=== PATIENT | female | born 1995 | race Hispanic/Latino ===

== ENCOUNTER 2018-04-07 20:30 | Day surgery (SDC) | payer OTHER ==
[2018-04-07 21:16] VITALS: BP 134/73; TEMP 98; BMI 26.3
[2018-04-07 21:18] LABS: Amnisure Internal Control QC ACCEPTABLE (ACCEPTABLE); Amnisure Test No Membranes Rupture (No Rupture)
== END 2018-04-07 23:00 | disposition home or self-care (01) ==
LOC: L&D/OP 20:30
PROVIDERS: ATTEND Obstetrics & Gynecology
DX: O47.9 False labor, unspecified (principal); Z79.899 Other long term (current) drug therapy
CPT/HCPCS: 84112; 87480; 87510; 87660; 99284

== ENCOUNTER 2018-04-08 06:08 | Inpatient (IN) | payer MEDICAID, OTHER, SELFPAY ==
[2018-04-08 06:33] VITALS: BMI 26.3
[2018-04-08] MEDS: Lactated Ringer's 1,000 ML IV SCH ×2 (06:58→08:16)
[2018-04-08] MEDS ORDERED: NS / Oxytocin 40 units/1000ml 1,000 ML IV PRN (07:11)
[2018-04-08] MEDS ORDERED: Ondansetron HCl/PF 4 MG/2 ML Vial IVP PRN (07:11)
[2018-04-08] MEDS ORDERED: Lidocaine 1% (PF) 30 ML VIAL SC PRN (07:11)
[2018-04-08] MEDS ORDERED: Zolpidem Tartrate 5 MG TAB PO PRN (07:11)
[2018-04-08] MEDS ORDERED: Butorphanol Tartrate 1 MG/ML VIAL SLOW IVP PRN (07:11)
[2018-04-08] MEDS ORDERED: Promethazine HCl 25 MG/ML VIAL IM PRN (07:11)
[2018-04-08] MEDS ORDERED: Docusate 100 MG CAP PO PRN (07:11)
[2018-04-08] MEDS ORDERED: HYDROcodone/Acetaminophen 5/325 mg Tablet PO PRN ×4 (07:29→13:17)
[2018-04-08] MEDS ORDERED: Ibuprofen 800 MG TAB PO PRN (07:29)
[2018-04-08] MEDS ORDERED: Bupivacaine 0.5% 20 ML, fentaNYL Citrate/PF 400 MCG in Sodium Chloride 0.9% 72 ML EPIDURAL SCH (07:30)
[2018-04-08] MEDS ORDERED: DISCONTINUE ALL PREVIOUS NARCOTICS FS SCH (07:30)
[2018-04-08] MEDS ORDERED: Bupivacaine 0.75% W/DEXTROSE 8.25% 2 ML AMP ONE (07:36)
[2018-04-08 07:38] LABS: Hemoglobin 12.6 g/dL (12.0-16.0); Mean Corpuscular Hemoglobin 30.9 pg (27.0-31.0); Mean Corpuscular Volume 85.7 fL (78.0-98.0); Platelet Count 146 thou/uL (130-400); RBC Distribution Width 12.1 % (11.5-14.5); Red Blood Cell (RBC) Count 4.07 mill/uL (4.20-5.40); White Blood Cell (WBC) Count 15.9 thou/uL (4.8-10.8)
[2018-04-08] MEDS ORDERED: Bupivacaine 0.5% 10 ML VIAL ONE (08:08)
[2018-04-08] MEDS ORDERED: Fentanyl 100 MCG/2 ML VIAL ONE (08:08)
[2018-04-08 08:23] LABS: HBSAg Index 0.21 S/CO (0-0.99); Hep B Surf Ag Non-Reactive S/CO (NonReactive); Syphilis Antibody Nonreactive (Nonreactive); Syphilis Antibody Index 0.03 S/CO (<1.00 Non-Reactive)
[2018-04-08] MEDS ORDERED: Bisacodyl 10 MG SUPP PR PRN (13:17)
[2018-04-08] MEDS ORDERED: Lanolin Ointment 7 GM TUBE TOP PRN (13:17)
[2018-04-08] MEDS ORDERED: Milk Of Magnesia 30 ML UDCUP PO PRN (13:17)
[2018-04-08] MEDS ORDERED: NS / Oxytocin 40 units/1000ml 1,000 ML IV SCH (13:17)
[2018-04-08] MEDS ORDERED: Benzocaine/Menthol 20-0.5% 60 ML CAN TOP PRN (13:17)
[2018-04-08] MEDS ORDERED: Adacel (T-DAP) 0.5 ML VIAL IM ONE (13:17)
--- NOTE | 2018-04-08 13:24 | OP ---
DATE OF PROCEDURE: 04/08/2018 ADMITTING DIAGNOSES: 1. A 22-year-old female, G3, P1-0-1-1, presented in active labor at 38 weeks and 5 days aft er a previous triage visit for the same complaint and sent home hours prior. 2. History of chlamydia in the first trimester, which was treated and resolved with test of cure is negative. 3. Grade 1-2 placenta. 4. Anemia of . 5. GBS negative. POST-DELIVERY DIAGNOSES: 1. A 22-year-old female, G3, P1-0-1-1, presented in active labor at 38 weeks and 5 days aft er a previous triage visit for the same complaint and sent home hours prior. 2. History of chlamydia in the first trimester, which was treated and resolved with test of cure is negative. 3. Grade 1-2 placenta. 4. Anemia of . 5. GBS negative. 6. Liveborn female with Apgars of 9 and 9 at 1 and 5 minutes, respectively. 7. Manually extracted placenta. SURGEON: Mary Grace Tamayo M.D. ANESTHESIA: Epidural. ESTIMATED BLOOD LOSS: 100 mL, quantitative blood loss measured was 80 mL. CLINICAL HISTORY: This patient is a 22-year-old female, G3, P1-0-1-1, who presented in acti ve labor around 6:00 a.m. this morning with a complaint of regular painful contractions. 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 Apparently, contractions were not able to be registered on the tocometer . The patient then was 3 cm, 60% effaced, and -3 station. When she returned for the admission, her cervical exam was 6 cm, 80% effaced, and 0 station. The patient was significantly uncomfortable and initially wanted a natural delivery. However, after amniotomy was performed with clear fluid, the pa tient progressed rapidly and her pain intensified. She requested an epidural for maternal analgesia. The epidural was placed and she continued to progress appropriately. A Edward catheter was placed a nd there was noted to be slightly blood-tinged urine. The patient progressed to complete, +2 station and began to push. DETAILS OF THE PROCEDURE: With good maternal effort, the patient was able to push the vertex t o the position. The baby was direct OP, and once the head was delivered, it restituted to t he patient's left. The anterior shoulder, followed by the posterior shoulder, followed by the remain morteza of the 's body was delivered. The cord was doubly clamped and cut by the mother of the pat ient and the was then placed on the maternal abdomen for skin to skin. The cord blood was obt ained and then the placenta was attempted delivery with fundal massage. However, after exploration, the placenta was tethered to the fundus and was manually finger dissected off of the uterine wall wit h a release. The placenta was inspected after delivery outside the body and noted that all of the lo bes of the placenta were present. There was a significant amount of calcifications for each lobe con sistent with the grade 2 placenta. The uterus was then well below the umbilicus and an exploration o f vagina introitus and cervix noted, no lacerations. The patient was allowed to recover on her Labor and Delivery unit in satisfactory condition with her . Again, the was a liveborn femal e, weight unavailable at the time of dictation with Apgars of 9 and 9 at 1 and 5 minutes respectively . There were no other issues surrounding this delivery.
[2018-04-08] MEDS: Ibuprofen 800 MG TAB PO SCH ×2 (14:45→21:36)
[2018-04-08] MEDS: Ferrous Sulfate 325 MG TAB PO SCH (17:33)
[2018-04-08] MEDS: Docusate Calcium (SURFAK) 240 MG CAP PO SCH (21:35)
[2018-04-09] MEDS: Ibuprofen 800 MG TAB PO SCH ×2 (06:15→14:43)
[2018-04-09] MEDS: Lactated Ringer's 1,000 ML IV SCH ×2 (06:27→14:43)
[2018-04-09 08:35] VITALS: TEMP 98.2
[2018-04-09] MEDS: Docusate Calcium (SURFAK) 240 MG CAP PO SCH (08:54)
[2018-04-09] MEDS: Ferrous Sulfate 325 MG TAB PO SCH (08:54)
[2018-04-09] MEDS ORDERED: Prenatal Vitamin 1 TAB PO SCH (09:00)
[2018-04-09 14:15] VITALS: BP 115/62
== END 2018-04-09 14:33 | disposition home or self-care (01) | DRG 775 ==
LOC: L&D/OP 06:08 → L&D 07:13 → 3SE 13:31
PROVIDERS: ADMIT Obstetrics & Gynecology; ATTEND Obstetrics & Gynecology
PROC: 10907ZC Drainage of Amniotic Fluid, Therapeutic from Products of Conception, Via Natural or Artificial Opening (ICD-10-PCS; principal; 2018-04-08)
PROC: 10E0XZZ Delivery of Products of Conception, External Approach (ICD-10-PCS; 2018-04-08)
PROC: 3E033VJ Introduction of Other Hormone into Peripheral Vein, Percutaneous Approach (ICD-10-PCS; 2018-04-08)
DX: O99.02 Anemia complicating childbirth (principal); D64.9 Anemia, unspecified; Z3A.38 38 weeks gestation of pregnancy; Z37.0 Single live birth
CPT/HCPCS: 51702; 85027; 86780; 86850; 86900; 86901; 87340; 90715; 99285; A4216; J2001; J3010; J3490; J7050

== ENCOUNTER 2019-08-17 03:12 | Inpatient (IN) | payer OTHER, SELFPAY ==
[2019-08-17 03:47] VITALS: BMI 26.6
[2019-08-17] MEDS ORDERED: HYDROcodone/Acetaminophen 5/325 mg Tablet PO PRN ×3 (04:12→08:12)
[2019-08-17] MEDS ORDERED: Misoprostol 200 MCG TAB PR PRN (04:12)
[2019-08-17] MEDS ORDERED: Ondansetron PF 4 MG/2 ML Vial IVP PRN ×3 (04:12→08:12)
[2019-08-17] MEDS ORDERED: Promethazine HCl 25 MG/ML VIAL IM PRN ×3 (04:12→08:12)
[2019-08-17] MEDS ORDERED: Lidocaine 1% (PF) 30 ML VIAL SC PRN (04:12)
[2019-08-17] MEDS ORDERED: Ibuprofen 800 MG TAB PO PRN (04:12)
[2019-08-17] MEDS ORDERED: Butorphanol Tartrate 1 MG/ML VIAL SLOW IVP PRN (04:12)
[2019-08-17] MEDS ORDERED: Methylergonovine 0.2 MG/ML VIAL IM PRN ×2 (04:12→08:12)
[2019-08-17] MEDS ORDERED: hydrALAZINE 20 MG/ML VIAL SLOW IVP PRN ×2 (04:12→08:12)
[2019-08-17] MEDS ORDERED: NS / Oxytocin 40 units/1000ml 1,000 ML IV PRN (04:12)
[2019-08-17] MEDS ORDERED: NS w/ Oxytocin 10 units 500 ML IV SCH (04:15)
[2019-08-17 04:38] LABS: Hemoglobin 12.4 g/dL (12.0-16.0); Mean Corpuscular HGB CONC 34.4 g/dL (32.0-36.0); Mean Corpuscular Hemoglobin 29.1 pg (27.0-31.0); Mean Corpuscular Volume 84.5 fL (78.0-98.0); Mean Platelet Volume 9.3 fL (7.4-10.4); Platelet Count 181 thou/uL (130-400); RBC Distribution Width 12.5 % (11.5-14.5); Red Blood Cell (RBC) Count 4.28 mill/uL (4.20-5.40); White Blood Cell (WBC) Count 18.6 thou/uL (4.8-10.8)
[2019-08-17] MEDS: Lactated Ringer's 1,000 ML IV SCH ×2 (04:41→05:17)
[2019-08-17] MEDS ORDERED: Fentanyl 4 mcg/Bup 0.1% Cadd 100 ML ONE (04:45)
[2019-08-17] MEDS ORDERED: diphenhydrAMINE 50 MG/ML VIAL IVP PRN (05:16)
[2019-08-17] MEDS ORDERED: Acetaminophen 325 MG TAB PO PRN (05:16)
[2019-08-17] MEDS ORDERED: Naloxone HCl 0.4 mg/ml Vial IVP PRN ×2 (05:16)
[2019-08-17] MEDS ORDERED: Lactated Ringer's 500 ML IV PRN (05:16)
[2019-08-17] MEDS ORDERED: ePHEDrine/0.9% NaCl/PF SYRINGE 50 mg/10 ml SLOW IVP PRN (05:16)
[2019-08-17 05:19] LABS: HBSAg Index 0.17 S/CO (0-0.99); Hep B Surf Ag Non-Reactive S/CO (NonReactive); Syphilis Antibody Nonreactive (Nonreactive); Syphilis Antibody Index 0.04 S/CO (<1.00 Non-Reactive)
[2019-08-17] MEDS ORDERED: Fentanyl 4 mcg/Bupivacaine 0.1% Cassette 100 ML EPIDURAL SCH (05:30)
[2019-08-17] MEDS ORDERED: Communication Order-Pharmacy FS SCH (05:30)
--- NOTE | 2019-08-17 08:11 | PDOC.OPDEL ---
OB Operative/Delivery Note Delivery Dr/Surgeon: Efrain Pre-Delivery Diagnosis: active labor Procedure/Post Delivery Dx: spontaneous vaginal delivery Weeks gestation: 39 Anesthesia: epidural - Findings A Sex: female - 1 min: 9 - 5 min: 9 - Additional Findings/Plan Placenta delivered: manual removal (Placenta manually delivered after about 25 mins) Repaired Obstetrical Laceration: none Estimated blood loss: 500 Compilations/Other Findings: Atony noted after placental delivery. Given methergine and cytotec with improvement in bleeding. Post delivery plan: routine recovery
[2019-08-17] MEDS ORDERED: Adacel (T-DAP) 0.5 ML SYRINGE IM ONE (08:12)
[2019-08-17] MEDS ORDERED: Benzocaine-Menthol 82.5 ML CAN TOP PRN (08:12)
[2019-08-17] MEDS ORDERED: diphenhydrAMINE 25 MG CAP PO PRN (08:12)
[2019-08-17] MEDS ORDERED: Zolpidem Tartrate 5 MG TAB PO PRN (08:12)
[2019-08-17] MEDS ORDERED: Varicella virus, LIVE 0.5 ML VIAL SC ONE (08:12)
[2019-08-17] MEDS ORDERED: Bisacodyl 10 MG SUPP PR PRN (08:12)
[2019-08-17] MEDS ORDERED: Preparation H Ointment 28 GM TUBE PR PRN (08:12)
[2019-08-17] MEDS ORDERED: Misoprostol 200 MCG TAB VAG PRN (08:12)
[2019-08-17] MEDS ORDERED: Lanolin Ointment 7 GM TUBE TOP PRN (08:12)
[2019-08-17] MEDS ORDERED: Milk Of Magnesia 30 ML UDCUP PO PRN (08:12)
[2019-08-17] MEDS ORDERED: Measles/Mumps/Rubella 10 MCG/0.5 ML VIAL SC ONE (08:12)
[2019-08-17] MEDS ORDERED: NS / Oxytocin 40 units/1000ml 1,000 ML IV SCH (08:15)
[2019-08-17] MEDS ORDERED: Bupivacaine 0.25% HCL 30 ML VIAL ONE (11:38)
[2019-08-17] MEDS: Ibuprofen 800 MG TAB PO SCH ×2 (14:17→21:12)
[2019-08-17] MEDS: Docusate Calcium (SURFAK) 240 MG CAP PO SCH ×2 (14:18→21:12)
[2019-08-17] MEDS ORDERED: Ferrous Sulfate 325 MG TAB PO SCH (17:00)
[2019-08-18] MEDS: Ibuprofen 800 MG TAB PO SCH ×2 (05:16→13:28)
[2019-08-18 06:30] VITALS: TEMP 98.6
[2019-08-18] MEDS: HYDROcodone/Acetaminophen 5/325 mg Tablet PO PRN ×2 (08:06→13:28)
[2019-08-18] MEDS: Docusate Calcium (SURFAK) 240 MG CAP PO SCH (08:06)
[2019-08-18 10:03] VITALS: BP 113/63
--- NOTE | 2019-08-18 10:18 | PDOC.PP ---
Post Progress Note Post Day #: 1 Subjective: Doing well, no complaints. Ready to go home today. PO intake tolerated: yes Ambulation: yes Vital Signs (12 hours) Temp Pulse Resp BP Pulse Ox 08/18/19 07:20 98.6 F 96 20 113/63 100 08/18/19 05:15 98.6 F 91 18 98/63 98 08/18/19 00:15 98.3 F 104 H 18 107/60 98 Weight Weight 146 lb - Physical Examination General: NAD Respiratory: non-labored breathing Neurological: no gross focal deficits Psychiatric: A&Ox3, normal affect Result Diagrams: 08/17/19 04:28 Additional Labs: Post Labs Blood Type O POSITIVE 08/17/19 04:28 Hep Bs Antigen Non-Reactive S/CO (NonReactive) 08/17/19 04:28 (1) Normal vaginal delivery Code(s): O80 - ENCOUNTER FOR FULL-TERM UNCOMPLICATED DELIVERY Status: Acute - Assessment/Plan Routine PPD1 management. D/c today to follow up with Mikayla Dickey in clinic for PP appointment.
== END 2019-08-18 14:20 | disposition home or self-care (01) | DRG 807 ==
LOC: L&D/OP 03:12 → L&D 04:52 → 3SW 10:44
PROVIDERS: ADMIT Obstetrics & Gynecology; ATTEND Obstetrics & Gynecology
PROC: 10E0XZZ Delivery of Products of Conception, External Approach (ICD-10-PCS; principal; 2019-08-17)
PROC: 10D17Z9 Manual Extraction of Products of Conception, Retained, Via Natural or Artificial Opening (ICD-10-PCS; 2019-08-17)
DX: O80 Encounter for full-term uncomplicated delivery (principal); Z37.0 Single live birth; Z3A.39 39 weeks gestation of pregnancy
CPT/HCPCS: 85027; 86780; 86850; 86900; 86901; 87340; 99285; J0595; J2210; S0020

== ENCOUNTER 2020-11-06 12:16 | Emergency (ER) | payer MEDICAID | END 2020-11-06 13:00 | disposition short-term general hospital (02) | LOC: ERS 12:16 | DX: O62.9 Abnormality of forces of labor, unspecified (principal); Z3A.38 38 weeks gestation of pregnancy | CPT/HCPCS: 99284 ==